=== PATIENT | female | born 1980 | race Two or more races ===

== ENCOUNTER 2017-07-04 12:34 | Emergency (ER) | payer SELFPAY ==
[2017-07-04 12:58] VITALS: RESP 18
--- NOTE | 2017-07-04 16:15 | EDPHY ---
H & P Stated Complaint: 5 weeks spotting has not seen dr yet Time Seen by Provider: 07/04/17 16:05 HPI/ROS: CHIEF COMPLAINT: vaginal spotting HISTORY OF PRESENT ILLNESS: 37-year-old female currently 4 weeks 7 days based on last menstrual period 05/31/2017 complaining of mild suprapubic cramping and vaginal spotting for the past few days. No back or flank pain. No nausea or vomiting. No fever or chills. No urinary abnormality. No passage of clots. No established OBGYN yet. PRIMARY CARE PROVIDER: None REVIEW OF SYSTEMS: A ten point review of systems was performed and is negative with the exception of the items mentioned in the HPI PAST MEDICAL & SURGICAL HISTORY: SOCIAL HISTORY: Nonsmoker PHYSICAL EXAM (Prior to examination, patient consented to physical exam, hands were washed and my usual and customary physical exam procedures followed) 1) GENERAL: Well-developed, well-nourished, alert and oriented. Appears to be in no acute distress. 2) HEAD: Normocephalic, atraumatic 3) HEENT: Pupils equal, round, reactive to light bilaterally. Sclera anicteric. 4) NECK: Full range of motion, no meningeal signs. 5) LUNGS: Clear auscultation bilaterally, no wheezes, no rhonchi, no retractions. 6) HEART: Regular rate and rhythm, no murmur, no heave, no gallop. 7) ABDOMEN: No guarding, no rebound, no focal tenderness, negative McBurney's, negative Noland's, negative Rovsing's, negative peritoneal sign, 8) MUSCULOSKELETAL: Moving all extremities, no focal areas of tenderness, no obvious trauma. No peripheral edema or discoloration. 9) BACK: No CVA tenderness. 10) SKIN: No rash, no petechiae. 11) Psychiatric: Patient is oriented X 3, there is no agitation. DIFFERENTIAL DIAGNOSIS: In no particular order including but not limited to ectopic , threatened , spontaneous , subchorionic hemorrhage - Personal History LMP (Females 10-55): Current Tetanus/Diphtheria Vaccine: Yes - Medical/Surgical History Hx Asthma: No Hx Chronic Respiratory Disease: No Hx Diabetes: No Hx Cardiac Disease: No Hx Renal Disease: No Hx Cirrhosis: No Hx Alcoholism: No Hx HIV/AIDS: No Hx Splenectomy or Spleen Trauma: No Other PMH: denies - Social History Smoking Status: Never smoked Constitutional: Initial Vital Signs Temperature (C) 37 C 07/04/17 12:55 Heart Rate 82 07/04/17 12:55 Respiratory Rate 18 07/04/17 12:55 Blood Pressure 121/82 H 07/04/17 12:55 O2 Sat (%) 99 07/04/17 12:55 O2 Delivery Mode Room Air Allergies/Adverse Reactions: No Known Allergies Allergy (Unverified 07/04/17 12:55) Home Medications: Medication Instructions Recorded Cephalexin [Keflex] 500 mg PO TID 7 Days cap 07/04/17 Medical Decision Making - Diagnostics Imaging Results: Imaging Impressions Obstetrics Ultrasound 07/04/17 16:06 Impression: There is a septated appearance to the endometrial horns, and no viable intrauterine is observed. There is no finding to specifically suggest an ectopic , although given the lack of a viable IUP, this diagnosis cannot be excluded at this point. There is a trace amount of free fluid in the pelvic cul-de-sac. Consider correlation with serial beta hCG values , and follow-up sonography in 2 weeks. Findings were discussed with Khloe Doll PA-C at 17:37, on 07/04/2017. If the patient should have a determined viable IUP in 2 weeks, given her advanced maternal age, it may be worthwhile to consider sonographic reevaluation between 11 and 13 weeks at the [facility] in the Maternal/ OB Clinic. Images reviewed myself ED Course/Re-evaluation: 4:14 p.m.: Will obtain blood work, ultrasound and re-evaluate 6:11 p.m.: Patient has been re-evaluated with serial examinations. She is Rh positive. Discussed her septate uterus findings which she was unaware previously. She has been informed that due to the age of her to station that ectopic is not fully ruled out. I have recommend follow-up with OBGYN in 2 days and given her this follow-up information. We also discussed the potential complications of septate uterus, further discussion deferred to cnc lathe machinist. She is also noted to have asymptomatic bacteriuria . I recommended treatment. Urine cultured. She feels good being discharged. - Data Points Laboratory Results: Laboratory Results 07/04/17 16:35 07/04/17 16:35 07/04/17 07/04/17 07/04/17 16:35 16:35 16:35 WBC 5.95 10^3/uL 10^3/uL (3.80-9.50) RBC 4.35 10^6/uL 10^6/uL (4.18-5.33) Hgb 13.3 g/dL g/dL (12.6-16.3) Hct 39.8 % % (38.0-47.0) MCV 91.5 fL fL (81.5-99.8) MCH 30.6 pg pg (27.9-34.1) MCHC 33.4 g/dL g/dL (32.4-36.7) RDW 13.9 % % (11.5-15.2) Plt Count 206 10^3/uL 10^3/uL (150-400) MPV 11.2 fL fL (8.7-11.7) Neut % (Auto) 56.1 % % (39.3-74.2) Lymph % (Auto) 30.9 % % (15.0-45.0) Barton % (Auto) 9.1 % % (4.5-13.0) Eos % (Auto) 3.0 % % (0.6-7.6) Baso % (Auto) 0.7 % % (0.3-1.7) Nucleat RBC Rel Count 0.0 % % (0.0-0.2) Absolute Neuts (auto) 3.34 10^3/uL 10^3/uL (1.70-6.50) Absolute Lymphs (auto) 1.84 10^3/uL 10^3/uL (1.00-3.00) Absolute Monos (auto) 0.54 10^3/uL 10^3/uL (0.30-0.80) Absolute Eos (auto) 0.18 10^3/uL 10^3/uL (0.03-0.40) Absolute Basos (auto) 0.04 10^3/uL 10^3/uL (0.02-0.10) Absolute Nucleated RBC 0.00 10^3/uL 10^3/uL (0-0.01) Immature Gran % 0.2 % % (0.0-1.1) Immature Gran # 0.01 10^3/uL 10^3/uL (0.00-0.10) Sodium 140 mEq/L mEq/L (135-145) Potassium 4.2 mEq/L mEq/L (3.5-5.2) Chloride 105 mEq/L mEq/L (97-110) Carbon Dioxide 22 mEq/l mEq/l (22-31) Anion Gap 13 mEq/L mEq/L (8-16) BUN 9 mg/dL mg/dL (7-23) Creatinine 0.7 mg/dL mg/dL (0.6-1.0) Estimated GFR > 60 Glucose 82 mg/dL mg/dL (70-100) Calcium 9.8 mg/dL mg/dL (8.5-10.4) Beta HCG, Quant 603.00 mIU/mL H mIU/mL (0.00-4.83) Urine Color Urine Appearance Urine pH Ur Specific [place] Urine Protein Urine Ketones Urine Blood Urine Nitrate Urine Bilirubin Urine Urobilinogen Ur Leukocyte Esterase Urine RBC Urine WBC Ur Epithelial Cells Urine Bacteria Urine Glucose Urine Test Patient ABO/Rh O POSITIVE Antibody Screen POSITIVE Antibody Identification Pending 07/04/17 07/04/17 13:00 13:00 WBC RBC Hgb Hct MCV MCH MCHC RDW Plt Count MPV Neut % (Auto) Lymph % (Auto) Barton % (Auto) Eos % (Auto) Baso % (Auto) Nucleat RBC Rel Count Absolute Neuts (auto) Absolute Lymphs (auto) Absolute Monos (auto) Absolute Eos (auto) Absolute Basos (auto) Absolute Nucleated RBC Immature Gran % Immature Gran # Sodium Potassium Chloride Carbon Dioxide Anion Gap BUN Creatinine Estimated GFR Glucose Calcium Beta HCG, Quant Urine Color YELLOW Urine Appearance CLEAR Urine pH 6.0 (5.0-7.5) Ur Specific [place] 1.005 (1.002-1.030) Urine Protein NEGATIVE (NEGATIVE) Urine Ketones NEGATIVE (NEGATIVE) Urine Blood 2+ H (NEGATIVE) Urine Nitrate NEGATIVE (NEGATIVE) Urine Bilirubin NEGATIVE (NEGATIVE) Urine Urobilinogen NEGATIVE EU EU (0.2-1.0) Ur Leukocyte Esterase NEGATIVE (NEGATIVE) Urine RBC 1-3 /hpf /hpf (0-3) Urine WBC 1-3 /hpf /hpf (0-3) Ur Epithelial Cells TRACE /lpf /lpf (NONE-1+) Urine Bacteria TRACE /hpf H /hpf (NONE SEEN) Urine Glucose NEGATIVE (NEGATIVE) Urine Test POSITIVE Patient ABO/Rh Antibody Screen Antibody Identification Departure - Departure Disposition: Home, Routine, Self-Care Clinical Impression: Septate uterus, Vaginal bleeding in , Asymptomatic bacteriuria during Condition: Good Instructions: First Trimester Vaginal Bleed (ED), Urinary Tract Infection in (ED) Additional Instructions: Return to the emergency department immediately if you develop fever, chills, nausea, vomiting, increase in vaginal bleeding, abdominal pain or any other symptoms that concern you. Referrals: Yosef Black MD [Medical Doctor] - 2-3 days, call for appt. Prescriptions: Cephalexin [Keflex] 500 mg PO TID 7 Days cap
[2017-07-04 17:03] LABS: PLATELET COUNT 206 10^3/uL (150-400)
[2017-07-04 18:49] VITALS: BP 129/74; PULSE 81; TEMP 98.6; O2SAT 98
== END 2017-07-04 18:49 | disposition home or self-care (01) ==
DX: O20.9 Hemorrhage in early pregnancy, unspecified (principal); O34.61 Maternal care for abnormality of vagina, first trimester; O23.40 Unspecified infection of urinary tract in pregnancy, unspecified trimester; Z3A.01 Less than 8 weeks gestation of pregnancy

== ENCOUNTER 2017-07-13 13:25 | Emergency (ER) | payer SELFPAY ==
[2017-07-13 13:39] VITALS: TEMP 98.2
--- NOTE | 2017-07-13 14:16 | EDPHY ---
H & P Stated Complaint: 6wks /r sided abd pain/seen 07/04 for spotting now resolved - Personal History LMP (Females 10-55): Current Tetanus/Diphtheria Vaccine: Yes - Medical/Surgical History Hx Asthma: No Hx Chronic Respiratory Disease: No Hx Diabetes: No Hx Cardiac Disease: No Hx Renal Disease: No Hx Cirrhosis: No Hx Alcoholism: No Hx HIV/AIDS: No Hx Splenectomy or Spleen Trauma: No Other PMH: denies - Social History Smoking Status: Never smoked <Mike Ramos - Last Filed: 07/14/17 07:11> <Renita Bruce - Last Filed: 07/14/17 08:51> Time Seen by Provider: 07/13/17 13:56 HPI/ROS: Chief Complaint: , abdominal cramping HPI: 37-year-old woman who is 8 weeks yes station by dates presenting with right lower pelvic cramping which began this morning. Patient was seen here 9 days ago for vaginal spotting. At that time she had a quantitative HCG of a little over 600. Ultrasound at that time did not identify an intrauterine but did show a septate uterus. The patient was referred to OBGYN for recheck as an outpatient but she did not attend because she does not currently have insurance. She continued to have vaginal spotting up until yesterday. Has not had any increasing bleeding today. Pain is constant. There are no aggravating or alleviating factors. No fevers or chills. No nausea vomiting or diarrhea. My ROS PMH: Denies Social History: No smoking, no alcohol, no recreational drug use Family History: non-contributory Physical Exam: Gen: Awake, Alert, No Distress HEENT: Nose: no rhinorrhea Eyes: PERRLA, EOMI Mouth: Moist mucosa Neck: Supple, no JVD Chest: nontender, lungs clear to auscultation Heart: S1, S2 normal, no murmur Abd: Soft, moderate right adnexal tenderness Back: no CVA tenderness, no midline tenderness Ext: no edema, non-tender Skin: no rash Neuro: CN II-XII intact, Sensation grossly intact, Strength 5/5 in bilateral upper and lower extremities (Mike Ramos) Constitutional: Initial Vital Signs Temperature (C) 36.8 C 07/13/17 13:36 Heart Rate 70 07/13/17 13:36 Respiratory Rate 18 07/13/17 13:36 Blood Pressure 124/80 H 07/13/17 13:36 O2 Sat (%) 99 07/13/17 13:36 O2 Delivery Mode Room Air Allergies/Adverse Reactions: No Known Allergies Allergy (Verified 07/13/17 13:36) Home Medications: Medication Instructions Recorded Ondansetron Odt [Zofran Odt 4 mg 4 mg PO Q4 PRN #10 tab 07/13/17 (RX)] 07/13/17 oxyCODONE/APAP 5/325 [Percocet 1 - 2 tab PO Q4H PRN #10 tab 07/13/17 5/325 (RX)] Medical Decision Making <Mike Ramos - Last Filed: 07/14/17 07:11> - Diagnostics Imaging: Discussed imaging studies w/ call center support consultant Radiologist <Renita Bruce - Last Filed: 07/14/17 08:51> ED Course/Re-evaluation: 1500 patient signed out to Dr. Bruce pending quantitative HCG result. (Mike Ramos) Other Provider: 1530: Patient's BHCG is 820.61; pelvic US ordered. 1535: Reassessed patient and discussed BHCG results. She is comfortable with plan for pelvic US. 1622: Patient is still in pain after Morphine; additional 4mg IV Morphine administered. 1630: Spoke with radiologist, regarding the patient's US. There is a probable right ectopic . 1645: Reassessed patient and discussed imaging findings. 1733: Consulted with Dr. Burnett, DISTILLER, regarding this patient's symptoms and imaging findings. Dr. Black, DISTILLER, will consult this patient in the ED. 1736: Reassessed patient and discussed plan for Dr. Black's consultation. 0.5mg IV Dilaudid and 4mg IV Zofran administered. 1900: Consulted with Dr. Black regarding this patient. Please see his note. He has discussed the options for treatment of ectopic with this patient. She is being treated with methotrexate which she has received in the emergency department. Patient is safe to go home, and will have a follow up visit with Dr. Black this week. She will have pain medication and antiemetics. He is advised to use Imodium as needed. Follow-up instructions and discharge instructions were provided by Dr. Black verbally. (Renita Bruce) - Data Points Laboratory Results: Laboratory Results 07/13/17 14:30 07/13/17 14:30 Medications Given: Discontinued Medications Hydromorphone HCl (Dilaudid) 0.5 mg IVP EDNOW ONE Stop: 07/13/17 17:43 Last Admin: 07/13/17 17:57 Dose: 0.5 mg Hydromorphone HCl (Dilaudid) 0.5 mg IVP EDNOW ONE Stop: 07/13/17 20:49 Last Admin: 07/13/17 20:52 Dose: 0.5 mg Methotrexate (Methotrexate Syringe) 82 mg IM ONCE ONE Stop: 07/13/17 19:20 Last Admin: 07/13/17 20:01 Dose: 82 mg Morphine Sulfate (Morphine) 4 mg IVP ONCE ONE Stop: 07/13/17 14:07 Last Admin: 07/13/17 14:36 Dose: 4 mg Morphine Sulfate (Morphine) 4 mg IVP EDNOW ONE Stop: 07/13/17 16:22 Last Admin: 07/13/17 16:23 Dose: 4 mg Ondansetron HCl (Zofran) 4 mg IVP EDNOW ONE Stop: 07/13/17 18:56 Last Admin: 07/13/17 18:55 Dose: 4 mg Ondansetron HCl (Zofran Odt 4 Mg Prepack#2) 1 btl TAKEHOME EDNOW ONE Stop: 07/13/17 20:21 Last Admin: 07/13/17 20:33 Dose: 1 btl Oxycodone/Acetaminophen (Percocet 5/325mg Prepack#4) 1 btl TAKEHOME EDNOW ONE Stop: 07/13/17 20:20 Last Admin: 07/13/17 20:34 Dose: 1 btl Departure <Mike Ramos - Last Filed: 07/14/17 07:11> <Renita Bruce - Last Filed: 07/14/17 08:51> - Departure Disposition: Home, Routine, Self-Care Clinical Impression: Ectopic Condition: Good Instructions: Oxycodone/Acetaminophen (By mouth), Ondansetron (By mouth), Ectopic (ED) Additional Instructions: Follow up with an DISTILLER tomorrow or as arranged with Dr. Black. Take Zofran and Percocet as prescribed. Return to the Emergency Department for fever, severe persistent pain, heavy bleeding, any new or concerning symptoms. Referrals: Yosef Black MD [Medical Doctor] - As per Instructions Prescriptions: Ondansetron Odt [Zofran Odt 4 mg (RX)] 4 mg PO Q4 PRN #10 tab PRN Reason: nausea oxyCODONE/APAP 5/325 [Percocet 5/325 (RX)] 1 - 2 tab PO Q4H PRN #10 tab PRN Reason: Pain, Severe <Mike Ramos - Last Filed: 07/14/17 07:11> Report Scribed for: Renita Bruce Report Scribed by: Tierney Gilbert Date of Report: 07/13/17 Time of Report: 15:44 <Renita Bruce - Last Filed: 07/14/17 08:51> Physician Review and Approval Statement: 07/14/17 08:51 Portions of this note were transcribed by the medical assembly. I, Dr. Renita Bruce, personally performed the history, physical exam, and medical decision- making; and confirmed the accuracy of the information in the transcribed note. ( Renita Bruce)
[2017-07-13 14:46] LABS: PLATELET COUNT 218 10^3/uL (150-400)
[2017-07-13] MEDS ORDERED: HYDROmorphONE/DILAUDID 1 MG/ML INJ IVP ONE ×2 (17:42→20:48)
[2017-07-13] MEDS ORDERED: ONDANSETRON 4 MG/2 ML VIAL ONE (18:53)
[2017-07-13] MEDS ORDERED: ONDANSETRON 4 MG/2 ML VIAL IVP ONE (18:55)
[2017-07-13] MEDS ORDERED: METHOTREXATE 25 MG/ML SYRINGE IM ONE (19:19)
--- NOTE | 2017-07-13 19:21 | PDCONSULT ---
[employer] Note: Subjective: 37yo G1 at approximately 6w1d by LMP of 05/31/17 presented to the ER this afternoon with RLQ and low back pain that had been increasing last night into this AM. This is a known, desired first . Had not been using anything for contraception - does not currently have insurance until early July so she has not yet established any care. She was seen in this ER 07/04/17 for spotting and some pelvic pain. HCG at that time was 603 and US showed no IUP but also no concern for ectopic. They did comment on septate uterus. Bleeding was minimal, she was advised to f/u with OBGYN as an outpatient for serial beta's and repeat US and ultimately did not complete that follow-up. The possibility of ectopic was raised on that prior US report and with the patient during that ER visit. She reports that she did pretty well at home over this last week - her bleeding has actually tapered off and almost resolved during that time. Pain did not show up and evolve until last night into this morning. Ultimately did present to ER here. Repeat HCG was 820 today, so not rising appropriately. US repeated and still showed no IUP , but now a new right mass adjacent to the ovary as below. Her labs and VS were otherwise normal and pain improved with Dilaudid PRN. Objective: Temp Pulse Resp BP Pulse Ox 36.8 C 74 16 122/69 H 94 07/13/17 13:36 07/13/17 18:00 07/13/17 18:00 07/13/17 18:00 07/13/17 18:00 WBC 6.73 10^3/uL (3.80-9.50) 07/13/17 14:30 RBC 4.51 10^6/uL (4.18-5.33) 07/13/17 14:30 Hgb 14.1 g/dL (12.6-16.3) 07/13/17 14:30 Hct 41.3 % (38.0-47.0) 07/13/17 14:30 MCV 91.6 fL (81.5-99.8) 07/13/17 14:30 MCH 31.3 pg (27.9-34.1) 07/13/17 14:30 MCHC 34.1 g/dL (32.4-36.7) 07/13/17 14:30 RDW 13.8 % (11.5-15.2) 07/13/17 14:30 Plt Count 218 10^3/uL (150-400) 07/13/17 14:30 MPV 11.0 fL (8.7-11.7) 07/13/17 14:30 Neut % (Auto) 70.0 % (39.3-74.2) 07/13/17 14:30 Lymph % (Auto) 21.2 % (15.0-45.0) 07/13/17 14:30 [place] % (Auto) 5.6 % (4.5-13.0) 07/13/17 14:30 Eos % (Auto) 2.7 % (0.6-7.6) 07/13/17 14:30 Baso % (Auto) 0.4 % (0.3-1.7) 07/13/17 14:30 Nucleat RBC Rel Count 0.0 % (0.0-0.2) 07/13/17 14:30 Absolute Neuts (auto) 4.70 10^3/uL (1.70-6.50) 07/13/17 14:30 Absolute Lymphs (auto) 1.43 10^3/uL (1.00-3.00) 07/13/17 14:30 Absolute Monos (auto) 0.38 10^3/uL (0.30-0.80) 07/13/17 14:30 Absolute Eos (auto) 0.18 10^3/uL (0.03-0.40) 07/13/17 14:30 Absolute Basos (auto) 0.03 10^3/uL (0.02-0.10) 07/13/17 14:30 Absolute Nucleated RBC 0.00 10^3/uL (0-0.01) 07/13/17 14:30 Immature Gran % 0.1 % (0.0-1.1) 07/13/17 14: Immature Gran # 0.01 10^3/uL (0.00-0.10) 07/13/17 14:30 Sodium 142 mEq/L (135-145) 07/13/17 14:30 Potassium 4.4 mEq/L (3.5-5.2) 07/13/17 14:30 Chloride 106 mEq/L (97-110) 07/13/17 14:30 Carbon Dioxide 22 mEq/l (22-31) 07/13/17 14:30 Anion Gap 14 mEq/L (8-16) 07/13/17 14:30 BUN 14 mg/dL (7-23) 07/13/17 14:30 Creatinine 0.8 mg/dL (0.6-1.0) 07/13/17 14:30 Estimated GFR > 60 07/13/17 14:30 Glucose 90 mg/dL (70-100) 07/13/17 14:30 Calcium 10.2 mg/dL (8.5-10.4) 07/13/17 14:30 Total Bilirubin 0.4 mg/dL (0.1-1.4) 07/13/17 16:30 Conjugated Bilirubin 0.3 mg/dL (0.0-0.5) 07/13/17 16:30 Unconjugated Bilirubin 0.1 mg/dL (0.0-1.1) 07/13/17 16:30 AST 28 IU/L (14-46) 07/13/17 16:30 ALT 36 IU/L (9-52) 07/13/17 16:30 Alkaline Phosphatase 74 IU/L (38-126) 07/13/17 16:30 Total Protein 7.9 g/dL (6.3-8.2) 07/13/17 16:30 Albumin 4.4 g/dL (3.5-5.0) 07/13/17 16:30 Beta HCG, Quant 820.61 mIU/mL (0.00-4.83) H 07/13/17 14:30 Exam: Gen: Appears tired, but alert, oriented. Occasionally nauseous and vomiting. Belly is soft, non-distended, non-tender to light palpation in all quadrants and pain can only be elicited with firmer palpation just on the right side. No rebound, no guarding. Imaging: Obstetrics Ultrasound 07/13/17 15:19 First Trimester Obstetric Ultrasound Indication: Pain, evaluation. Had US last week. Beta hCG slightly higher today (860). Comparison: First trimester obstetric ultrasound dated July 04, 2017. Technique: Transvaginal and transabdominal imaging. Findings: A new heterogeneous mass has developed adjacent to the right ovary measuring 2.1 x 1.6 x 1.3 cm. Mass has limited blood flow on color Doppler imaging. A hemorrhagic corpus luteal cyst measuring 1.7 x 1.6 x 1.3 cm emanating off the medial aspect of the left ovary is unchanged in size and appearance since 2 weeks prior. A nonperistalsing tubular structure in the left adnexa is new since 2 weeks prior and has minimal internal debris. It is unclear whether this represents fluid within the left fallopian tube. No mass associated with the left fallopian tube. No intrauterine gestational sac. The endometrial lining measures up to 6 mm. The small uterine leiomyoma in the posterior body and the configuration in the fundal aspect of the endometrial cavity is less well characterized than 2 weeks prior. Trace free fluid in the pelvis. No significant hemoperitoneum. The ovaries are normal size and have appropriate blood flow. The right ovary measures 2.4 x 1.7 x 1.3 cm. The left ovary measures 3.2 x 2.9 x 2.4 cm. Impression: 1. New right adnexal mass, adjacent the right ovary, is moderately suspicious for ectopic . Small free fluid. No significant hemoperitoneum. 2. No intrauterine gestation. 3. Query left hydrosalpinx. No evidence of ectopic on the left. Findings discussed with Emergency Department physician, Renita Bruce on 2017, 16:30. Assessment & Plan: Right ectopic , unruptured I had a long talk with Franny and her partner today about her , this pain, and what information we have thus far from her repeat HCG levels and her imaging. I counseled them that I do think that this is a right ectopic . BetaHCG's rising inappropriately, new right adnexal/paraovarian mass that was not there on prior scan, her pain, and still no IUP all point to this. We discussed that diagnosis at length - she does not have any immediately obvious risk factors for ectopic . She is hemodynamically stable and her pain is being adequately controlled with IV Dilaudid currently. We discussed that she essentially has three options for management in this situation. Observation is one, but I would not recommend that for her. Second would be treatment with methotrexate if she meets certain criteria, and third would be electing to move straight to surgery for diagnostic laparoscopy, possible treatment of right tubal with salpingostomy or salpingectomy. We reviewed criteria which must be met if we're going to consider MTX therapy. Her HCG is < 5000 which works, the ectopic mass is < 3-4cm which meets criteria , there is no cardiac activity, there is no evidence of tubal rupture/ hemorrhage at this time (evidenced by reassuring adminal exam, and seemingly the same small free fluid that was there on her US last week. Certainly no evidence of new/increased hemorrhagic fluid in the pelvis). We discussed risks/ benefits of each course of action (MTX vs surgery). Discussed that risks that go along with MTX include side effects of the medication itself, but importantly the possibility that the tube could still rupture/bleed and that she may ultimately need a more emergent surgery in that situation. We also discussed the estimates that MTX treatment in appropriate candidates in successful about 90% of the time, but that 10% or more of those patients may need an additional treatment dose of MTX at 7 days if beta's are not falling appropriately. Benefits of MTX are that we may be left with a less damaged fallopian tube ultimately and she avoids the risk of surgery. Risks of surgery include those of anesthesia, bleeding, infection and inadvertent injury. I counseled them that if we do determine that this is tubal we have the option of salpingostomy vs salpingectomy, but that removing the tube is often necessary if the tube is damaged from the ectopic. Discussed the impacts of salpingectomy (unilateral) of fertility rates in the future. Benefits of surgery is that we get a definitive answer and treatment now at a time when the tube does not seem to be bleeding. Overall I think she is a good candidate for MTX and they were comfortable with that plan of action. MTX 50mg/m2 IM was administered here in the ED after confirming normal kidney and liver function. Blood type is O Positive. Scripts given for Percocet, Zofran and Imodium. Strict precautions given to call or represent to ER if any concern about evolving significant abdominal pain or s/sx of blood loss/anemia. Plan will be to f/u with me in the office this coming Tuesday for visit and potentially repeat TVUS if any concern for further bleeding. Today is day 1 so HCG's will be checked on day 4 and 7 and if we don't see 15% drop between days 4 and 7 then may need second dose of medication. Advised her to avoid intercourse or vigorous activity, to stop taking PNV and avoid NSAIDS. Will f/u with her in clinic later this week. MD KAN Padilla
[2017-07-13] MEDS ORDERED: OXYCODONE/APAP 5/325MG PREPACK#4 BTL TAKEHOME ONE (20:19)
[2017-07-13] MEDS ORDERED: ONDANSETRON 4MG PREPACK#2 BTL TAKEHOME ONE (20:20)
[2017-07-13 21:40] VITALS: BP 127/66; PULSE 58; RESP 14; O2SAT 95
== END 2017-07-13 21:40 | disposition home or self-care (01) ==
DX: O00.90 Unspecified ectopic pregnancy without intrauterine pregnancy (principal); Z3A.08 8 weeks gestation of pregnancy
CPT/HCPCS: 96374; J1170; J2405; J9250